=== PATIENT | female | born 1980 | race Caucasian/White ===

== ENCOUNTER 2016-12-14 23:25 | Day surgery (SDC) | payer MEDICAID, OTHER ==
[~2016-12-14] VITALS: Ht 167.6 cm; Wt 53.5 kg
[~2016-12-14 23:25] MED LIST: PREN1TAB39
--- OUTSIDE RECORDS SUMMARY | 2016-12-14 23:35 | XMS REPORT | Continuity of Care Document ---
Author Author [facility] C[facility] of [facility]tr of [facility] Address Unknown Phone Unavailable Allergies Medications Problems Date Dx Coded Attending Type Code Diagnosis Diagnosed By 11/05/2007 VAMSI WALSH APRN S 311 MO DEPRESSIVE DISORDER NOS 11/05/2007 311 MO DEPRESSIVE DISORDER NOS 11/05/2007 MARY DO JOSE LUIS K 311 MO DEPRESSIVE DISORDER NOS 11/05/2007 HARJINDERDONOVAN GERONIMO MARIE A 311 MO DEPRESSIVE DISORDER NOS 11/05/2007 MARY DO JOSE LUIS K 311 MO DEPRESSIVE DISORDER NOS 11/05/2007 MARY DO, JOSE LUIS K 311 MO DEPRESSIVE DISORDER NOS 11/05/2007 MARY DO, JOSE LUIS K 311 MO DEPRESSIVE DISORDER NOS 11/05/2007 MARY DO, JOSE LUIS K 311 MO DEPRESSIVE DISORDER NOS 01/13/2012 ÓSCAR WALSH APRNNDA S 530.81 GERD 01/13/2012 ÓSCAR WALSH APRNNDA S 625.0 DYSPAREUNIA 01/13/2012 VAMSI WALSH APRN S 724.2 LUMBAGO/ LOW BACK PAIN 01/13/2012 530.81 GERD 01/13/2012 625.0 DYSPAREUNIA 01/13/2012 724.2 LUMBAGO/ LOW BACK PAIN 01/13/2012 MARY DO JOSE LUIS K 530.81 GERD 01/13/2012 MARY DO JOSE LUIS K 625.0 DYSPAREUNIA 01/13/2012 MARY DO, JOSE LUIS K 724.2 LUMBAGO/ LOW BACK PAIN 01/13/2012 HARJINDER LOG CUT OFF SAWYER, MARIE A 530.81 GERD 01/13/2012 HARJINDER APRN, MARIE A 625.0 DYSPAREUNIA 01/13/2012 HARJINDERFermin GERONIMO MARIE A 724.2 LUMBAGO/ LOW BACK PAIN 01/13/2012 MARY DO JOSE LUIS K 530.81 GERD 01/13/2012 MARY DO JOSE LUIS K 625.0 DYSPAREUNIA 01/13/2012 MARY DO JOSE LUIS K 724.2 LUMBAGO/ LOW BACK PAIN 01/13/2012 MARY DO, JOSE LUIS K 530.81 GERD 01/13/2012 MARY DO, JOSE LUIS K 625.0 DYSPAREUNIA 01/13/2012 MARY DO, JOSE LUIS K 724.2 LUMBAGO/ LOW BACK PAIN 01/13/2012 MARY DO, JOSE LUIS K 530.81 GERD 01/13/2012 MARY DO, JOSE LUIS K 625.0 DYSPAREUNIA 01/13/2012 MARY DO, JOSE LUIS K 724.2 LUMBAGO/ LOW BACK PAIN 01/13/2012 MARY DO, JOSE LUIS K 530.81 GERD 01/13/2012 MARY DO, JOSE LUIS K 625.0 DYSPAREUNIA 01/13/2012 MARY DO, JOSE LUIS K 724.2 LUMBAGO/ LOW BACK PAIN 02/04/2012 VAMSI WALSH APRN S V76.10 BREAST CANCER SCREENING 02/04/2012 VAMSI WALSH APRN S V76.2 CERVICAL CANCER SCREENING (PAP SMEAR) 02/04/2012 V76.10 BREAST CANCER SCREENING 02/04/2012 V76.2 CERVICAL CANCER SCREENING (PAP SMEAR) 02/04/2012 MARY DO JOSE LUIS K V76.10 BREAST CANCER SCREENING 02/04/2012 MARY DO JOSE LUIS K V76.2 CERVICAL CANCER SCREENING (PAP SMEAR) 02/04/2012 HARJINDER GERONIMO MARIE A V76.10 BREAST CANCER SCREENING 02/04/2012 HARJINDER GERONIMO MARIE A V76.2 CERVICAL CANCER SCREENING (PAP SMEAR) 02/04/2012 USMAN ANGELA JOSE LUIS K V76.10 BREAST CANCER SCREENING 02/04/2012 MARY DO JOSE LUIS K V76.2 CERVICAL CANCER SCREENING (PAP SMEAR) 02/04/2012 MARY DO, JOSE LUIS K V76.10 BREAST CANCER SCREENING 02/04/2012 MARY DO, JOSE LUIS K V76.2 CERVICAL CANCER SCREENING (PAP SMEAR) 02/04/2012 MARY DO JOSE LUIS K V76.10 BREAST CANCER SCREENING 02/04/2012 MARY DO, JOSE LUIS K V76.2 CERVICAL CANCER SCREENING (PAP SMEAR) 02/04/2012 MARY DO JOSE LUIS K V76.10 BREAST CANCER SCREENING 02/04/2012 MARY DO JOSE LUIS K V76.2 CERVICAL CANCER SCREENING (PAP SMEAR) 07/21/2013 MARY DO, JOSE LUIS K 458.9 HYPOTENSION UNSPECIFIED 07/21/2013 MARY DO, JOSE LUIS K 780.4 DIZZINESS AND GIDDINESS 07/21/2013 MARY DO, JOSE LUIS K 784.0 HEADACHE 07/21/2013 MARY DO, JOSE LUIS K 787.02 NAUSEA ALONE 07/21/2013 MARY DO, OJSE LUIS K 458.9 HYPOTENSION UNSPECIFIED 07/21/2013 MARY DO, JOSE LUIS K 780.4 DIZZINESS AND GIDDINESS 07/21/2013 MARY DO, JOSE LUIS K 784.0 HEADACHE 07/21/2013 MARY DO, JOSE LUIS K 787.02 NAUSEA ALONE 07/21/2013 MARY DO, JOSE LUIS K 458.9 HYPOTENSION UNSPECIFIED 07/21/2013 MARY DO, JOSE LUIS K 780.4 DIZZINESS AND GIDDINESS 07/21/2013 MARY DO, JOSE LUIS K 784.0 HEADACHE 07/21/2013 MARY DO, JOSE LUIS K 787.02 NAUSEA ALONE 07/21/2013 MARY DO, JOSE LUIS K 458.9 HYPOTENSION UNSPECIFIED 07/21/2013 MARY DO, JOSE LUIS K 780.4 DIZZINESS AND GIDDINESS 07/21/2013 MARY DO, JOSE LUIS K 784.0 HEADACHE 07/21/2013 MARY DO, JOSE LUIS K 787.02 NAUSEA ALONE 06/19/2014 MARY DO, JOSE LUIS K 784.0 HEADACHE Procedures Code Description [place] [address] GC/CHLAM PROBE (STATE) 02/04/2012 Q0091 PAP SMEAR OBTAIN SMEAR 02/04/2012 04064 TRICHOMONAS (IN-HOUSE) 02/04/2012 17915 CULTURE UROGENITAL 02/08/2012 16350 PAP SMEAR 2011 84954 XRAY LUMBAR SPINE 2 OR 3 VIEWS 06/01/2012 PHYSI PHYSICAL THERAPY, VIA MATT 06/01/2012 67044 ROUTINE VENIPUNCTURE 07/21/2013 32208 HEMOGLOBIN (IN-HOUSE) 07/21/2013 96662 A1C (IN-HOUSE) 4950 GFR CALC (RESULT ONLY) 07/21/2013 32963 CMP 07/21/2013 Results Encounters ACCT No. Visit Date/Time Discharge Status Pt. Type Provider Facility Loc./Unit Complaint [id number] 06/19/2014 12:59:00 06/19/2014 23: 59:59 CLS Outpatient JOSE LUIS MARY DO [id number] 03/14/2014 14:05:00 03/14/2014 23: 59:59 CLS Outpatient JOSE LUIS MARY DO Clive [id number] 08/22/2013 12:24:00 08/22/2013 23: 59:59 CLS Outpatient JOSE LUIS MARY DO Clive [id number] 07/21/2013 13:23:00 07/21/2013 23: 59:59 CLS Outpatient SUMAN ANGELA JOSE LUIS K [id number] 02/24/2013 09:49:00 02/24/2013 23: 59:59 CLS Outpatient MARIE GRANDE APRN [id number] 06/01/2012 13:33:00 06/01/2012 23: 59:59 CLS Outpatient SULEMAN MARY DOTonio Duffy [id number] 04/07/2012 15:03:00 04/07/2012 23: 59:59 CLS Outpatient [id number] 02/04/2012 14:19:00 02/04/2012 23: 59:59 CLS Outpatient VAMSI WALSH APRN
--- OUTSIDE RECORDS SUMMARY | 2016-12-14 23:35 | XMS REPORT ---
Author Author CECY VILLASENOR Organization [facility] Address [address] [place] [address] Care Team Providers Care Fire Protection Specialist Name Role Phone KRYSTINRufina CECY Unavailable PROBLEMS Type Condition ICD9-CM Code XXX67-PJ Code Onset Dates Condition Status SNOMED Code Problem Periodontal disease, unspecified K05.6 Active 679244020 Problem Hematemesis K92.0 Active 4424178 Problem Menorrhagia with regular cycle N92.0 Active 871988107 Problem Dyspepsia R10.13 Active 633712383 Problem Low back pain M54.5 Active 710818905 Problem Nausea R11.0 Active 514233071 Problem Heartburn R12 Active 41555375 Problem History of hematuria Z87.448 Active 315285228 ALLERGIES Substance Reaction Event Type Date Status N.K.D.A. Unknown Non Drug Allergy Mar, Unknown SOCIAL HISTORY No smoking Hx information available PLAN OF CARE Activity Details Follow Up 3-4 weeks with a new pcp Reason:establish care VITAL SIGNS Height 67 in 2016-04-22 Weight 112.8 lbs 2016-04-22 Temperature 98.8 degrees Fahrenheit 2016-04-22 Heart Rate 56 bpm 2016-04-22 Respiratory Rate 16 2016-04-22 BMI 17.67 kg/m2 2016-04-22 Blood pressure systolic 100 mmHg 2016-04-22 Blood pressure diastolic 70 mmHg 2016-04-22 MEDICATIONS Medication Instructions Dosage Frequency Start Date End Date Duration Status Nexium 40 mg Orally Once a day 1 capsule 24h Mar, 30 day(s) Active Cipro 250 MG Orally every 12 hrs 1 tablet 12h Mar, Apr, 07 days Active RESULTS Name Result Date Reference Range H PYLORI (IN HOUSE) 2016-04-22 H. PYLORI negative Control + Lot # [id number] Exp date 01/2017 UA LONG DIP (IN HOUSE) 2016-04-22 Lot # [id number] Exp date 02/06 Clarity clear Color ion Odor foul GLU negative JANNET 1+ KET negative SG 1.020 BLO 2+ pH 7.0 Protein negative URO >8.0 NIT negative DAI 3+ Lot # Exp date CULTURE, URINE 2016-04-23 Urine Culture, Routine Final report Result 1 Antimicrobial Susceptibility PROCEDURES Procedure Date Ordered Related Diagnosis Body Site IMMUNOASSAY,INFECTIOUS AGENT Apr 22, 2016 URINALYSIS, AUTO, W/O SCOPE Apr 22, 2016 LAB NOT BILLED BY [facility] Apr 22, 2016 Office Visit, Est Pt., Level 4 Apr 22, 2016 IMMUNIZATIONS No Known Immunizations
--- OUTSIDE RECORDS SUMMARY | 2016-12-14 23:35 | XMS REPORT ---
Author Author DONNA CHAMBERLAIN Organization [employer] Address Unknown Phone Unavailable Care Team Providers Care Power Tool Repair Technician Name Role Phone DONNA CHAMBERLAIN CP Unavailable Allergies, Adverse Reactions, Alerts Substance Reaction Event Type N.K.D.A. Info Not Available Non Drug Allergy Problems Problem Type Condition Code Onset Dates Condition Status Assessment Other chronic pain G89.29 Active Problem Lumbago 724.2 Active Problem Esophageal reflux 530.81 Active Assessment Dorsalgia, unspecified M54.9 Active Problem Headache 784.0 Active Problem Dizziness and giddiness 780.4 Active Problem Nausea alone 787.02 Active Problem Screening for malignant neoplasm of the cervix V76.2 Active Problem Dyspareunia 625.0 Active Problem Unspecified hypotension 458.9 Active Problem Unspecified breast screening V76.10 Active Medications Medication Code System Code Instructions Start Date End Date Status Dosage [facility] [id number] 10 mg Orally Once a day Nov 13, 2015 3 tabs x 3 days, then 2 tabs x 3 days, then 1 tab x 3 days Procedures Procedure Coding System Code Date Office Visit, Est Pt., Level 3 CPT-4 80903 Nov 13, 2015 Vital Signs Date/Time: Nov 13, 2015 Cardiac Monitoring Heart Rate 68 bpm Weight 113.6 lbs Height 67 in BMI 17.79 Index Blood Pressure Diastolic 66 mmHg Blood Pressure Systolic 102 mmHg Results No Known Results Summary Purpose [employer] Submission
[2016-12-14] MEDS ORDERED: NS IV 1000 ML 1,000 ML IV ONE (23:55)
[2016-12-14] MEDS ORDERED: fentaNYL INJECTION 100 MCG/2 ML AMP IVP STA (23:55)
--- NOTE | 2016-12-15 00:12 | ED Abdominal Pain ---
General Chief Complaint: Abdominal/GI Problems Stated Complaint: AB SIDE PAIN Nursing Triage Note: RIGHT SIDED ABDOMINAL PAIN/NAUSEA X1HR Sepsis Screen: No Definite Risk Source of Information: Patient Exam Limitations: No Limitations History of Present Illness Time Seen By Provider: 00:02 Initial Comments Here with report of right flank pain and right upper quadrant abdominal pain that started about an hour ago and woke her up from sleep. Denies previous pain like this before. Does report nausea but no vomiting. Denies diarrhea. Denies fever or chills. Timing/Duration: 1 Hour Severity/Quality: Moderate, Severe Location: RUQ Radiation: RLQ Activities at Onset: Sleeping Modifying Factors: Worsens With Movement Associated Symptoms: No Back Pain, No Chest Pain, No Fever/Chills, Nausea/ Vomiting, No Shortness of Air, No Swelling/Mass in Abdomen, No Weakness Allergies and Home Medications Allergies Coded Allergies: diphenhydramine (Verified Adverse Reaction, Mild, DROWSINESS, 05/21/09) Uncoded Allergies: BENADRYL (Adverse Reaction, Mild, DROWSINESS, 07/30/05) Home Medications No Active Prescriptions or Reported Meds Review of Systems Constitutional: see HPI, No chills, No fever EENTM: No Symptoms Reported Respiratory: No Symptoms Reported Cardiovascular: No Symptoms Reported Gastrointestinal: See HPI, Abdominal Pain, Denies Diarrhea, Nausea, Denies Vomiting Genitourinary: No Symptoms Reported Musculoskeletal: no symptoms reported Skin: no symptoms reported Psychiatric/Neurological: No Symptoms Reported All Other Systems Reviewed Negative Unless Noted: Yes Past Tqxaghx-Dqbwqd-Bttkev Hx Patient Social History Alcohol Use: Denies Use Recreational Drug Use: No Smoking Status: Never a Smoker 2nd Hand Smoke Exposure: No Recent Foreign Travel: No Contact w/Someone Who Travel: No Recent Infectious Disease Expo: No Recent Hopitalizations: No Immunizations Up To Date Tetanus Booster (TDap): Unknown Surgeries History of Surgeries: Yes () Surgeries: Tubal Ligation Respiratory History of Respiratory Disorde: No Cardiovascular History of Cardiac Disorders: No Neurological History of Neurological Disord: No Reproductive System : No Hx Reproductive Disorders: No [facility] History: Tubal Ligation Genitourinary History of Genitourinary Disor: No Gastrointestinal History of Gastrointestinal Di: Yes Gastrointestinal Disorders: Gastroesophageal Reflux Musculoskeletal History of Musculoskeletal Dis: No Endocrine History of Endocrine Disorders: No HEENT History of HEENT Disorders: No Cancer History of Cancer: No Psychosocial History of Psychiatric Problem: No Integumentary History of Skin or Integumenta: No Blood Transfusions History of Blood Disorders: No Reviewed Nursing Assessment Reviewed/Agree w Nursing PMH: Yes Physical Exam Vital Signs VS - Last 72 Hours, by Label 12/14/16 12/15/16 12/15/16 23:54 00:07 01:53 Temp 97.3 97.3 97.3 Pulse 71 Resp 20 B/P (MAP) 102/61 Pulse Ox 100 O2 Delivery Room Air Capillary Refill : Less Than 3 Seconds General Appearance: WD/WN, no apparent distress HEENT: PERRL/EOMI, pharynx normal Neck: full range of motion, supple Respiratory: lungs clear, normal breath sounds Cardiovascular: regular rate, rhythm, no murmur Peripheral Pulses: 2+ Dorsalis Pedis (R), 2+ Left Dors-Pedis (L), 2+ Radial Pulses (R), 2+ Radial Pulses (L) Gastrointestinal: soft, No guarding, No rebound, tenderness (right upper quadrant) Extremities: non-tender, normal inspection Back: normal inspection, no CVA tenderness, no vertebral tenderness Neurologic/Psychiatric: alert, oriented x 3 Skin: normal color, warm/dry Progress/Results/Core Measures Results/Orders Lab Results Laboratory Tests Test 12/15/16 00:00 Range/Units White Blood Count 9.3 4.3-11.0 10^3/uL Red Blood Count 3.83 L 4.35-5.85 10^6/uL Hemoglobin 12.0 11.5-16.0 G/DL Hematocrit 36 35-52 % Mean Corpuscular Volume 94 80-99 FL Mean Corpuscular Hemoglobin 31 25-34 PG Mean Corpuscular Hemoglobin Concent 34 32-36 G/DL Red Cell Distribution Width 12.2 10.0-14.5 % Platelet Count 283 130-400 10^3/uL Mean Platelet Volume 9.0 7.4-10.4 FL Neutrophils (%) (Auto) 56 42-75 % Lymphocytes (%) (Auto) 34 12-44 % Monocytes (%) (Auto) 8 0-12 % Eosinophils (%) (Auto) 1 0-10 % Basophils (%) (Auto) 0 0-10 % Neutrophils # (Auto) 5.2 1.8-7.8 X 10^3 Lymphocytes # (Auto) 3.1 1.0-4.0 X 10^3 Monocytes # (Auto) 0.8 0.0-1.0 X 10^3 Eosinophils # (Auto) 0.1 0.0-0.3 10^3/uL Basophils # (Auto) 0.0 0.0-0.1 10^3/uL Urine Color YELLOW Urine Clarity SLIGHTLY CLOUDY Urine pH 6 5-9 Urine Specific [place] 1.020 1.016-1.022 Urine Protein 1+ H NEGATIVE Urine Glucose (UA) NEGATIVE NEGATIVE Urine Ketones NEGATIVE NEGATIVE Urine Nitrite NEGATIVE NEGATIVE Urine Bilirubin NEGATIVE NEGATIVE Urine Urobilinogen NORMAL NORMAL MG/DL Urine Leukocyte Esterase 3+ H NEGATIVE Urine RBC (Auto) 4+ H NEGATIVE Urine RBC 5-10 H /HPF Urine WBC 10-25 H /HPF Urine Squamous Epithelial Cells 10-25 H /HPF Urine Crystals NONE /LPF Urine Bacteria LARGE H /HPF Urine Casts NONE /LPF Urine Mucus LARGE H /LPF Urine Culture Indicated YES Sodium Level 138 135-145 MMOL/L Potassium Level 3.8 3.6-5.0 MMOL/L Chloride Level 105 98-107 MMOL/L Carbon Dioxide Level 24 21-32 MMOL/L Anion Gap 9 5-14 MMOL/L Blood Urea Nitrogen 15 7-18 MG/DL Creatinine 0.67 0.60-1.30 MG/DL Estimat Glomerular Filtration Rate > 60 BUN/Creatinine Ratio 22 Glucose Level 118 H 70-105 MG/DL Calcium Level 8.7 8.5-10.1 MG/DL Total Bilirubin 0.4 0.1-1.0 MG/DL Aspartate Amino Transf (AST/SGOT) 13 5-34 U/L Alanine Aminotransferase (ALT/SGPT) 10 0-55 U/L Alkaline Phosphatase 38 L 40-136 U/L Total Protein 7.1 6.4-8.2 GM/DL Albumin 4.2 3.2-4.5 GM/DL Amylase Level 71 25-125 U/L Lipase 15 8-78 U/L My Orders Orders - KENN BROCK MD Cbc With Automated Diff (12/14/16 23:55) Comprehensive Metabolic Panel (12/14/16 23:55) Ua Culture If Indicated (12/14/16 23:55) Saline Lock/Iv-Start (12/14/16 23:55) Ns Iv 1000 Ml (Sodium Chloride 0.9%) (12/14/16 23:55) Fentanyl Injection (Sublimaze Injection (12/14/16 23:55) Urine Bedside (12/14/16 23:55) Urine Culture (12/15/16 00:00) Ct Abdomen/Pelvis W (12/15/16 01:26) Fentanyl Injection (Sublimaze Injection (12/15/16 01:27) Iohexol Injection (Omnipaque 350 Mg/Ml 1 (12/15/16 01:30) Ns (Ivpb) (Sodium Chloride 0.9% Ivpb Bag (12/15/16 01:30) Amylase (12/15/16 03:06) Lipase (12/15/16 03:06) Fentanyl Injection (Sublimaze Injection (12/15/16 04:23) Medications Given in ED Current Medications Medications Dose Ordered Sig/Ludy Route Start Time Stop Time Status Last Admin Dose Admin Iohexol 100 ml ONCE ONCE IV 12/15/16 01:30 12/15/16 02:51 DC 12/15/16 01:40 100 ML Sodium Chloride 100 ml ONCE ONCE IV 12/15/16 01:30 12/15/16 02:51 DC 12/15/16 01:40 80 ML Sodium Chloride 1,000 ml @ 0 mls/hr Q0M ONCE IV 12/14/16 23:55 12/14/16 23:57 DC 12/15/16 00:07 0 MLS/HR Vital Signs/I&O Vital Sign - Last 12Hours 12/14/16 12/15/16 12/15/16 23:54 00:07 01:53 Temp 97.3 97.3 97.3 Pulse 71 Resp 20 B/P (MAP) 102/61 Pulse Ox 100 O2 Delivery Room Air Blood Pressure Mean: 75 Progress Note : Progress Note Seen and evaluated. IV, labs, UA, normal saline 1 L bolus and fentanyl [address] abdomen and pelvis ordered. Repeat fentanyl 50 g IV ordered for persistent pain. 0545: CT report still unavailable. Discussed the case with Dr. Canales. Due to repeat requirement for pain medicines and multiple stones within the gallbladder, admission and consideration for surgery is indicated. Dr. Canales agrees and will likely take her for cholecystectomy today. Agrees to admission, observation status. Discussed with patient and family who agree. Departure Communication (Admissions) Time/Spoke to Admitting Phy: 05:45 Impression Impression: Primary Impression: Cholelithiasis and cholecystitis without obstruction Qualified Codes: K80.00 - Calculus of gallbladder with acute cholecystitis without obstruction Disposition: ADMITTED INPATIENT Condition: Stable Admissions Decision to Admit Reason: Admit from ER (General) Decision to Admit/Date: Dec 15, 2016 Time/Decision to Admit Time: 05:45 Departure-Patient Inst. Referrals: [facility] (PCP/Family) Primary Care Physician Scripts No Active Prescriptions or Reported Meds KENN BROCK MD Dec 15, 2016 00:12
[2016-12-15 00:17] LABS: BILIRUBIN,URINE NEGATIVE (NEGATIVE); KETONES,URINE NEGATIVE (NEGATIVE); LEUKOCYTE ESTERASE ,URINE 3+ (NEGATIVE); NITRITE,URINE NEGATIVE (NEGATIVE); PH,URINE 6 (5-9); PROTEIN,URINE 1+ (NEGATIVE); UROBILINOGEN,URINE NORMAL (NORMAL)
[2016-12-15 00:18] LABS: BASOPHILS % (AUTO) 0 % (0-10); EOSINOPHILS # (AUTO) 0.1 10^3/uL (0.0-0.3); EOSINOPHILS % (AUTO) 1 % (0-10); LYMPHOCYTES # (AUTO) 3.1 X 10^3 (1.0-4.0); LYMPHOCYTES % (AUTO) 34 % (12-44); MEAN CORPUSCULAR HEMOGLOBIN 31 PG (25-34); MEAN CORPUSCULAR HGB CONC 34 G/DL (32-36); MEAN CORPUSCULAR VOLUME 94 FL (80-99); MONOCYTES # (AUTO) 0.8 X 10^3 (0.0-1.0); MONOCYTES % (AUTO) 8 % (0-12); NEUTROPHILS # (AUTO) 5.2 X 10^3 (1.8-7.8); NEUTROPHILS % (AUTO) 56 % (42-75); PLATELET COUNT 283 10^3/uL (130-400); RED BLOOD COUNT 3.83 10^6/uL (4.35-5.85); RED CELL DISTRIBUTION WIDTH 12.2 % (10.0-14.5); WHITE BLOOD COUNT 9.3 10^3/uL (4.3-11.0)
[2016-12-15 00:36] LABS: ALANINE AMINOTRANSFERASE 10 U/L (0-55); ALBUMIN 4.2 GM/DL (3.2-4.5); ANION GAP 9 MMOL/L (5-14); ASPARTATE AMINO TRANSFERASE 13 U/L (5-34); BILIRUBIN,TOTAL 0.4 MG/DL (0.1-1.0); BLOOD UREA NITROGEN 15 MG/DL (7-18); BUN/CREATININE RATIO 22; CALCIUM 8.7 MG/DL (8.5-10.1); CARBON DIOXIDE 24 MMOL/L (21-32); CHLORIDE 105 MMOL/L (98-107); CREATININE SERUM 0.67 MG/DL (0.60-1.30); GFR ESTIMATED > 60; GLUCOSE 118 MG/DL (70-105); POTASSIUM 3.8 MMOL/L (3.6-5.0); SODIUM 138 MMOL/L (135-145); TOTAL PROTEIN 7.1 GM/DL (6.4-8.2)
[2016-12-15] MEDS ORDERED: fentaNYL INJECTION 100 MCG/2 ML AMP IVP STA ×2 (01:27→04:23)
[2016-12-15] MEDS ORDERED: IOHEXOL 350 MG/ML 100 ML (OMNIPAQUE 350) VIAL IV ONE (01:30)
[2016-12-15] MEDS ORDERED: NS 100 ML (IVPB) BAG IV ONE (01:30)
[2016-12-15 02:00] VITALS: BP 112/76
[2016-12-15 03:25] LABS: AMYLASE 71 U/L (25-125); LIPASE 15 U/L (8-78)
[2016-12-15 04:00] VITALS: BP 119/65
--- OUTSIDE RECORDS SUMMARY | 2016-12-15 05:56 | XMS REPORT | Continuity of Care Document ---
Author Author [facility] of [facility] Address Unknown Phone Unavailable Allergies Medications Problems [...] 724.2 LUMBAGO/ LOW BACK PAIN 01/13/2012 HARJINDER SPECIAL EDUCATION SUPERVISOR, MARIE A 530.81 GERD 01/13/2012 HARJINDER APRN, [...] Procedures Code Description [place] [address] GC/CHLAM PROBE (STATE) 02/04/2012 Q0091 PAP SMEAR OBTAIN SMEAR 02/04/2012 88681 TRICHOMONAS (IN-HOUSE) 02/04/2012 20435 CULTURE UROGENITAL 02/08/2012 27702 PAP SMEAR 2011 06929 XRAY LUMBAR SPINE 2 OR 3 VIEWS 06/01/2012 PHYSI PHYSICAL THERAPY, VIA MATT 06/01/2012 42349 ROUTINE VENIPUNCTURE 07/21/2013 53390 HEMOGLOBIN (IN-HOUSE) 07/21/2013 96303 A1C (IN-HOUSE) 4950 GFR CALC (RESULT ONLY) 07/21/2013 41194 CMP 07/21/2013 Results Encounters ACCT No. Visit Date/Time Discharge Status Pt. Type Provider Facility Loc./Unit Complaint [id number] 06/19/2014 12:59:00 06/19/2014 23: 59:59 CLS Outpatient JOSE LUIS MARY DO [id number] 03/14/2014 14:05:00 03/14/2014 23: 59:59 CLS Outpatient JOSE LUIS MARY DO Clive [id number] 08/22/2013 12:24:00 08/22/2013 23: 59:59 CLS Outpatient JOSE LUIS MARY DO Clive [id number] 07/21/2013 13:23:00 07/21/2013 23: 59:59 CLS Outpatient USMAN ANGELA JOSE LUIS K [id number] 02/24/2013 09:49:00 02/24/2013 23: 59:59 CLS Outpatient MARIE GRANDE APRN [id number] 06/01/2012 13:33:00 06/01/2012 23: 59:59 CLS Outpatient SULEMAN MARY DOTonio Duffy [id number] 04/07/2012 15:03:00 04/07/2012 23: 59:59 CLS Outpatient [id number] 02/04/2012 14:19:00 02/04/2012 23: 59:59 CLS Outpatient VAMSI WALSH APRN
[2016-12-15] MEDS: NS IV 1000 ML 1,000 ML IV SCH ×2 (06:26→14:51)
[2016-12-15] MEDS ORDERED: ONDANSETRON 4 MG/2 ML (SDV) Z0FRAN IV PRN (06:30)
--- NOTE | 2016-12-15 07:13 | Diagnostic Imaging Report ---
PROCEDURE: CT abdomen and pelvis with contrast. TECHNIQUE: Multiple contiguous axial images were obtained through the abdomen and pelvis after administration of intravenous contrast. INDICATION: Right lower quadrant abdominal pain with nausea. There is mild dependent atelectasis in the left lung base. No focal hepatic or splenic abnormalities identified. Pancreas and adrenal glands were also unremarkable. There are multiple stones within the lumen of the gallbladder however no gallbladder wall thickening or pericholecystic fluid is identified. There is no evidence of biliary ductal dilatation. Nonobstructing calculus in the central right kidney measures approximately 0.5 cm in size. Kidneys are otherwise unremarkable. There is no free fluid in the abdomen. Within the pelvis, there is distention of distal small bowel with fluid. The cecum is located to the left of midline and directed cephalad. Moderate amount of stool is seen within the cecum and distal colon. No localized inflammation is identified. Partially opacified urinary bladder is unremarkable. Note is made of surgical clips bilaterally in the adnexal regions. In addition, there is an approximately 1.8 cm cystic structure in the right adnexal region. IMPRESSION: Unusual positioning of the cecum could be related to volvulus or internal hernia. Consideration should be given to contrast enema for further assessment. Dilatation of distal small bowel loops may be due to partial bowel obstruction as well. 1.7 cm cystic structure in the right adnexal region is likely ovarian in nature. If indicated, short-term ultrasound followup in the pelvis may be of value. Dictated by: Dictated on workstation # [id number]
[2016-12-15 08:49] VITALS: BP 103/69
--- NOTE | 2016-12-15 09:50 | Diagnostic Imaging Report ---
PROCEDURE: US Gallbladder. TECHNIQUE: Multiple real-time grayscale images were obtained over the right upper quadrant in various projections. INDICATION: Right upper quadrant pain. FINDINGS: The pancreas appears unremarkable. The liver is fairly homogeneous with no focal lesion seen. Hepatopedal flow in the portal vein seen. The CBD is obscured. There are multiple stones seen in the gallbladder. No significant wall thickening is seen. No pericholecystic fluid. Color Doppler demonstrates hepatopedal flow in the portal vein The right kidney demonstrates suggestion of a nonobstructive stone measuring 1 CM in the middle of the right kidney. The right kidney is 12 CM in length. No free fluid or fluid collection in the upper right abdomen seen. Sonographic Cooper sign is reportedly negative. IMPRESSION: 1. Multiple gallstones. 2. A 1 cm nonobstructive stone in the mid right kidney. Dictated by: Dictated on workstation # [id number]
[2016-12-15] MEDS: fentaNYL INJECTION 100 MCG/2 ML AMP IV PRN ×2 (10:06→15:53)
[2016-12-15] MEDS ORDERED: IBUP-2055 PO (10:30)
[2016-12-15] MEDS ORDERED: RANI-514 PO (10:30)
[2016-12-15 12:00] VITALS: BP 114/75
[2016-12-15 15:45] VITALS: BP 99/65
[2016-12-15] MEDS ORDERED: CATHETER FLUSH 10 ML SYR IV PRN (16:00)
[2016-12-15] MEDS: CIPROFLOXACIN IV 400MG/200ML 200 ML IV SCH (16:28)
--- NOTE | 2016-12-15 16:33 | Progress Note-Pre Operative ---
Pre-Operative Progress Note H&P Reviewed The H&P was reviewed, patient examined and no changes noted. Date Seen by Provider: Dec 15, 2016 Time Seen by Provider: 16:32 Date H&P Reviewed: Dec 15, 2016 Time H&P Reviewed: 16:32 Pre-Operative Diagnosis: chronic calculous cholecystitis KYRA RUSSELL MD Dec 15, 2016 4:33 pm
--- NOTE | 2016-12-15 17:26 | HISTORY AND PHYSICAL ---
DATE OF SERVICE: ATTENDING SUPERINTENDENT JOB: [facility]. HISTORY OF PRESENT ILLNESS: The patient is a 36-year-old female who presented to [facility] Emergency Department early this morning with pain in the right upper abdominal quadrant as well as nausea. She reports that this had occurred the day of and worsened in intensity. She also had reported some nausea; however, no vomiting. A CT scan was performed which did show multiple gallstones. Another incidental finding was a possibility of a target sign in the intussusception; however, she has no signs of any obstruction. Since being admitted, she states that her pain has been under control. She states that she is also hungry. She does not report any fever or chills. PAST MEDICAL HISTORY: Gastroesophageal reflux disease. PAST SURGICAL HISTORY: section, tubal ligation. ALLERGIES: Benadryl. MEDICATIONS: None. SOCIAL HISTORY: Negative smoke, negative alcohol. FAMILY HISTORY: Noncontributory. VITAL SIGNS: Temperature 98.6, blood pressure 114/75, pulse 69, respirations 20, pulse ox 100% on room air. REVIEW OF SYSTEMS: Well-nourished female currently in no acute distress. She is not experiencing any shortness of breath or difficulty breathing. No chest pain, palpitations, diaphoresis. No nausea, vomiting. No diarrhea, constipation, no red blood per rectum, no dark tarry stools. No fever or chills. No recent inadvertent weight loss. All other review of systems negative. PHYSICAL EXAMINATION: CHEST: Clear with good breath sounds bilaterally. HEART: Regular, no murmurs. EXTREMITIES: No lower extremity edema, negative Homans sign. HEENT: No scleral icterus. NECK: No cervical lymphadenopathy. ABDOMEN: Soft, nondistended. There is mild discomfort in the right upper abdominal quadrant upon deep palpation, no peritoneal signs. SKIN: Warm, dry. LABORATORY DATA: WBC 9.3, hemoglobin 12.0, hematocrit 36, platelets 283, total bilirubin 0.4, AST 13, ALT 10, alkaline phosphatase 38, amylase 71, lipase 15. Urinalysis shows 3+ leukocyte esterase and a large amount of bacteria. ASSESSMENT AND PLAN: A 36-year-old female with symptomatic chronic calculous cholecystitis. The natural history of gallbladder disease was explained to the patient including more frequent as well as worsening episodes as well as risk of acute cholecystitis or gangrenous cholecystitis. She is in full understanding and elects to proceed with laparoscopic cholecystectomy which we will proceed with on this admission. The incidental finding on the CT scan, most likely indicated a volvulus. However, in her age group the majority of these are spontaneous and resolve on their own over time. She is not showing any obstructive symptoms and no further imaging is required. Job ID: [id number] DocumentID: [id number] Dictated Date: 12/15/2016 16:32:18 Rn Spine Date: 12/15/2016 17:25:38 Dictated By: KYRA RUSSELL MD
[2016-12-15] MEDS: metroNIDAZOLE 500MG/100ML IVPB 100 ML IV SCH (18:56)
[2016-12-15 19:49] VITALS: BP 122/60
[2016-12-16 00:41] VITALS: BP 97/59
[2016-12-16] MEDS: NS IV 1000 ML 1,000 ML IV SCH ×3 (01:20→11:28)
[2016-12-16] MEDS: CIPROFLOXACIN IV 400MG/200ML 200 ML IV SCH (04:14)
[2016-12-16] MEDS: metroNIDAZOLE 500MG/100ML IVPB 100 ML IV SCH ×2 (06:02→16:48)
[2016-12-16 08:34] VITALS: BP 104/68
[2016-12-16] MEDS ORDERED: TRIM/SULFAMETH 160/800 (SEPTRA DS) TAB PO SCH ×2 (08:43→17:00)
[2016-12-16] MEDS ORDERED: proPOfol 200 MG/20 ML (DIPRIVAN) VIAL IV ONE (10:26)
[2016-12-16] MEDS ORDERED: LIDOCAINE PF 2% 5 ML (XYLOCAINE) VIAL ONE (10:26)
[2016-12-16] MEDS ORDERED: ROCURONIUM 50 MG/5 ML (ZEMURON) VIAL IV ONE (10:26)
[2016-12-16] MEDS ORDERED: LACTATED RINGERS 1,000 ML IV ONE ×2 (10:26→13:31)
[2016-12-16] MEDS ORDERED: SUCCINYLCHOLINE INJ 100 MG/5 ML SYR ONE (10:26)
[2016-12-16] MEDS ORDERED: ONDANSETRON 4 MG/2 ML (SDV) Z0FRAN ONE (10:26)
[2016-12-16] MEDS ORDERED: fentaNYL INJECTION 100 MCG/2 ML AMP ONE (10:27)
[2016-12-16] MEDS ORDERED: MIDAZOLAM 2 MG/2 ML (VERSED) VIAL ONE (10:27)
[2016-12-16] MEDS ORDERED: BUP/EPI 0.5% 1:200,000 (MARCAINE) 10ML VIAL IJ ONE (12:00)
[2016-12-16] MEDS: LACTATED RINGERS 1,000 ML IV PRN ×2 (12:00→12:44)
[2016-12-16] MEDS ORDERED: SEVOFLURANE (ULTANE) 15 ML INHAL SOLN ONE ×4 (12:08→13:07)
[2016-12-16] MEDS ORDERED: DEXAMETHASONE 10 MG/ML (DECADRON) 1 ML VIAL ONE (12:14)
[2016-12-16] MEDS ORDERED: ceFAZolin 1,000 MG (ANCEF) VIAL ONE ×2 (12:25→12:26)
--- NOTE | 2016-12-16 13:29 | Progress Note-Post Operative ---
Post-Operative Progess Note Surgeon (s)/Disaster Recovery Specialist (s) Surgeon KYRA RUSSELL MD Disaster Recovery Specialist: fátima steen PLANE TABLEMAN Pre-Operative Diagnosis chronic calculous cholecystitis Post-Operative Diagnosis same Procedure & Operative Findings Date of Procedure 12/16/16 Procedure Performed/Findings laparoscopic cholecystectomy Anesthesia Type GET Estimated Blood Loss Estimated blood loss (mL): minimal Specimens/Packing Specimens Removed gallbladder KYRA RUSSELL MD Dec 16, 2016 1:29 pm
[2016-12-16] MEDS ORDERED: HYDROcodone/APAP 7.5 MG/325 MG (LORTAB, LORCET PLUS) TABLET PO PRN (13:30)
[2016-12-16] MEDS ORDERED: SULF1TAB35 PO (13:36)
[2016-12-16] MEDS ORDERED: HYDR-3816 PO (13:36)
--- NOTE | 2016-12-16 13:39 | Discharge Inst-Surgical ---
D/C Lap Instructions-YVONNE New, Converted, or Re-Newed RX: RX on Chart Follow Up Appt in 2 weeks Activity as tolerated No driving for 24 hours No driving while on pain medications Incentive Spirometry use every 2 hours while awake Regular Diet Symptoms to Report: Fever over 101 degree F, Nausea/Vomiting Infection Signs and Symptoms to report: Increased redness, Foul odor of wound, Increased drainage Bathing instructions: May shower Operative Area Clean/Dry; Keep incision clean/dry If any problems/questions: Contact your physician or go to Emergency Room KYRA RUSSELL MD Dec 16, 2016 1:39 pm
[2016-12-16 14:46] VITALS: BP 108/75
[2016-12-16 18:53] VITALS: BP 108/75
--- NOTE | 2016-12-17 21:10 | OPERATIVE REPORT ---
DATE OF SERVICE: 12/16/2016 PREOPERATIVE DIAGNOSIS: Symptomatic chronic calculous cholecystitis. POSTOPERATIVE DIAGNOSIS: Symptomatic chronic calculous cholecystitis. PROCEDURE: Laparoscopic cholecystectomy. SURGEON: Dr. Russell. FUSING FURNACE LOADER: Manohar Montelongo APRN. ANESTHESIA: General endotracheal. ESTIMATED BLOOD LOSS: Minimal. FINDINGS: Chronic gallbladder wall inflammation as well as omental adhesions throughout the gallbladder, multiple gallstones. No small bowel intussusception was identified. DISPOSITION: The patient tolerated the procedure well. INDICATION: The patient is a 36-year-old female who presented to [facility] Emergency Department with right upper abdominal quadrant pain as well as nausea. She had reported that the symptoms have reoccurred and worsened in severity over a time. She also had reported some nausea; however, no vomiting. A CT scan was performed which did show multiple gallstones. Another incidental finding was identified with a possibility of a target sign to indicate a small bowel intussusception; however, she showed no signs of obstruction. She was admitted, started on IV fluids as well as bowel rest. She did not have any issues of nausea, no vomiting as well as no abdominal distention and was passing flatus and having bowel movements. She did have continued pain in the right upper abdominal quadrant. DESCRIPTION OF PROCEDURE: The patient was brought to the operating room, laid supine on the table. After adequate IV pain and sedating medications and general endotracheal intubation, the abdomen was prepped and draped in a standard surgical fashion. A 0.5% Marcaine with epinephrine was then used to anesthetize the overlying skin in the left upper abdominal quadrant. An 0 silk suture was applied to the medial aspect of the incision for retraction. A Veress needle was inserted with a low opening pressure of 0 mmHg. The abdomen was then insufflated to 15 mmHg pressure. The Veress needle was removed and a 5 mm Xcel trocar was placed followed by a 5 mm 45 degree angle laparoscope visualizing the peritoneal cavity. A four-quadrant abdominal exploration was performed. The small bowel, omentum appeared normal with no signs of intussusception. The liver, stomach appeared normal. There were omental adhesions throughout the gallbladder consistent with a chronic cholecystitis. Under direct visualization, we then proceeded to place a supraumbilical 10 mm port after the skin and peritoneum were anesthetized using 0.5% Marcaine and a transverse skin incision made using a 15 blade. In a similar manner, right upper abdominal quadrant 5 mm port was placed. The patient was then placed in reverse Trendelenburg position as well as plane right side up, left side down. The omental adhesions to the gallbladder were then gently taken down using blunt dissection as well as electrocautery with visualization of good hemostasis. The hepatoduodenal ligament was then opened using the hook instrument as well as blunt dissection. The critical view of safety was identified including the triangle of Calot, the cystic duct and artery going into the gallbladder as well as the liver behind the proximal gallbladder. A timeout was then taken and the cystic duct and artery were then clipped proximally, distally and cut with EndoShears. The gallbladder was then dissected off the liver bed using electrocautery on the hook instrument with visualization good hemostasis as well as no leaking ducts of Luschka. The gallbladder was removed through the 10 mm port site using an EndoCatch bag. The fascia and peritoneum were then closed under direct visualization using Sedrick-Ijeoma device and 0 Vicryl suture. The abdomen was desufflated and remaining ports removed. All skin incisions were closed using 4-0 Monocryl running subcuticular sutures. Wounds were then cleaned and covered with Dermabond. The patient tolerated the procedure well. We will start IV and oral pain medications as well as a clear liquid diet. Once she is tolerating clears and has good pain control with oral pain medication and ambulating well, we will discharge her home. Job ID: [id number] DocumentID: [id number] Dictated Date: 12/16/2016 13:50:47 Unarmed Security Officer Date: 12/17/2016 06:33:49 Dictated By: KYRA RUSSELL MD [facility]
--- OUTSIDE RECORDS SUMMARY | 2016-12-18 09:10 | XMS REPORT ---
Author Author CECY VILLASENOR [facility] Address [address] [place] [address] Care Team Providers Care Coordinator Of Evaluation Name Role Phone CECY VILLASENOR Unavailable PROBLEMS Type Condition ICD9-CM Code [id number] Code Onset Dates Condition Status SNOMED Code Problem Periodontal disease, unspecified K05.6 Active 400195669 Problem Hematemesis K92.0 Active 3099842 Problem Menorrhagia with regular cycle N92.0 Active 367131986 Problem Dyspepsia R10.13 Active 999725316 Problem Low back pain M54.5 Active 207922567 Problem Nausea R11.0 Active 427969055 Problem Heartburn R12 Active 43719926 Problem History of hematuria Z87.448 Active 772676106 ALLERGIES No Information SOCIAL HISTORY Never Assessed PLAN OF CARE VITAL SIGNS MEDICATIONS Medication Instructions Dosage Frequency Start Date End Date Duration Status Bactrim DS 800-160 MG Orally Twice a day 1 tablet 12h Apr, 2 May, 2016 07 days Active RESULTS No Results PROCEDURES No Known procedures IMMUNIZATIONS No Known Immunizations MEDICAL (GENERAL) HISTORY Type Description Date Medical History Unspecified hypotension Medical History Esophageal reflux Medical History Esophageal reflux Surgical History Surgical History Tubal Hospitalization History at
--- OUTSIDE RECORDS SUMMARY | 2016-12-18 09:10 | XMS REPORT ---
Author Author CECY VILLASENOR [facility] Address [address] [place] [address] Care Team Providers Care Sales Representative Wire Rope Name Role Phone CECY VILLASENOR Unavailable PROBLEMS Type Condition ICD9-CM Code HGG00-OP Code Onset Dates Condition Status SNOMED Code Problem Periodontal disease, unspecified K05.6 Active 929732593 Problem Hematemesis K92.0 Active 1711427 Problem Menorrhagia with regular cycle N92.0 Active 519046977 Problem Dyspepsia R10.13 Active 375555681 Problem Low back pain M54.5 Active 477374275 Problem Nausea R11.0 Active 486061351 Problem Heartburn R12 Active 00562640 Problem History of hematuria Z87.448 Active 032569336 ALLERGIES No Known Allergies SOCIAL HISTORY Never Assessed PLAN OF CARE Activity Details Follow Up 2-3 weeks Reason:Annual/WWE VITAL SIGNS Height 67 in 2016-05-13 Weight 117.6 lbs 2016-05-13 Temperature 98.4 degrees Fahrenheit 2016-05-13 Heart Rate 70 bpm 2016-05-13 Respiratory Rate 16 2016-05-13 BMI 18.42 kg/m2 2016-05-13 Blood pressure systolic 92 mmHg 2016-05-13 Blood pressure diastolic 60 mmHg 2016-05-13 MEDICATIONS Medication Instructions Dosage Frequency Start Date End Date Duration Status Nexium 40 mg Orally Once a day 1 capsule 24h Mar, 30 day(s) Active RESULTS Name Result Date Reference Range UA W/ MICROSCOPY 2016-05-13 Specific [place] 1.019 1.005-1.030 pH 8.5 5.0-7.5 Urine-Color Yellow Yellow Appearance Turbid Clear WBC Esterase 3+ Negative Protein 2+ Negative/Trace Glucose Negative Negative Ketones Negative Negative Occult Blood 1+ Negative Bilirubin Negative Negative Urobilinogen,Semi-Qn 0.2 0.2-1.0 Nitrite, Urine Negative Negative Microscopic Examination See below: WBC >30 0 - 5 RBC 3-10 0 - 2 Epithelial Cells (non renal) >10 0 - 10 Epithelial Cells (renal) Casts Cast Type Crystals Present N/A Crystal Type Amorphous Sediment N/A Mucus Threads Present Not Estab. Bacteria Moderate None seen/Few Yeast Trichomonas Comment TSH 2016-05-13 TSH 0.819 0.450-4.500 CBC 2016-05-13 WBC 8.4 3.4-10.8 RBC 3.88 3.77-5.28 Hemoglobin 12.0 11.1-15.9 Hematocrit 36.1 34.0-46.6 MCV 93 79-97 MCH 30.9 26.6-33.0 MCHC 33.2 31.5-35.7 RDW 12.3 12.3-15.4 Platelets 313 150-379 Neutrophils 64 Lymphs 26 Monocytes 8 Eos 1 Basos 1 Neutrophils (Absolute) 5.4 1.4-7.0 Lymphs (Absolute) 2.2 0.7-3.1 Monocytes(Absolute) 0.7 0.1-0.9 Eos (Absolute) 0.1 0.0-0.4 Baso (Absolute) 0.0 0.0-0.2 Immature Granulocytes 0 Immature Grans (Abs) 0.0 0.0-0.1 LIPID PANEL 2016-05-13 Cholesterol, Total 160 100-199 Triglycerides 70 0-149 HDL Cholesterol 74 >39 VLDL Cholesterol Slick 14 5-40 LDL Cholesterol Calc 72 0-99 CMP 2016-05-13 Glucose, Serum 94 65-99 BUN 12 6-20 Creatinine, Serum 0.55 0.57-1.00 eGFR If NonAfricn Am 123 >59 eGFR If Africn Am 142 >59 BUN/Creatinine Ratio 22 8-20 Sodium, Serum 139 134-144 Potassium, Serum 4.1 3.5-5.2 Chloride, Serum 103 96-106 Carbon Dioxide, Total 25 18-29 Calcium, Serum 8.8 8.7-10.2 Protein, Total, Serum 7.1 6.0-8.5 Albumin, Serum 4.5 3.5-5.5 Globulin, Total 2.6 1.5-4.5 A/G Ratio 1.7 1.1-2.5 Bilirubin, Total 0.7 0.0-1.2 Alkaline Phosphatase, S 39 39-117 AST (SGOT) 10 0-40 ALT (SGPT) 7 0-32 Xray : Spine, Lumbar 2-3 views (IN HOUSE) 2016-05-13 PROCEDURES Procedure Date Ordered Result [facility] X-RAY EXAM OF LOWER SPINE May 13, 2016 VENIPUNCT, ROUTINE* May 13, 2016 IMMUNIZATIONS No Known Immunizations MEDICAL (GENERAL) HISTORY Type Description Date Medical History Unspecified hypotension Medical History Esophageal reflux Medical History Esophageal reflux Surgical History Surgical History Tubal Hospitalization History at
--- OUTSIDE RECORDS SUMMARY | 2016-12-18 09:11 | XMS REPORT | Continuity of Care Document ---
Author Author [facility] Address Unknown Phone Unavailable Allergies Medications [...] 724.2 LUMBAGO/ LOW BACK PAIN 01/13/2012 HARJINDER UNDERLINER, MARIE A 530.81 GERD 01/13/2012 HARJINDER APRN, MARIE A 625.0 DYSPAREUNIA 01/13/2012 HARJNIDERFermin GERONIMO MARIE A 724.2 LUMBAGO/ LOW BACK [...] Procedures Code Description [place] [address] GC/CHLAM PROBE (STATE) 02/04/2012 Q0091 PAP SMEAR OBTAIN SMEAR 02/04/2012 77040 TRICHOMONAS (IN-HOUSE) 02/04/2012 95746 CULTURE UROGENITAL 02/08/2012 50615 PAP SMEAR 2011 49528 XRAY LUMBAR SPINE 2 OR 3 VIEWS 06/01/2012 PHYSI PHYSICAL THERAPY, VIA MATT 06/01/2012 56206 ROUTINE VENIPUNCTURE 07/21/2013 12357 HEMOGLOBIN (IN-HOUSE) 07/21/2013 36289 A1C (IN-HOUSE) 4950 GFR CALC (RESULT ONLY) 07/21/2013 83930 CMP 07/21/2013 Results Encounters ACCT No. Visit Date/Time Discharge Status Pt. Type Provider Facility Loc./Unit Complaint [id number] 06/19/2014 12:59:00 06/19/2014 23: 59:59 CLS Outpatient JOSE LUIS MARY DO [id number] 03/14/2014 14:05:00 03/14/2014 23: 59:59 CLS Outpatient JOSE LUIS MARY DO [place] [id number] 08/22/2013 12:24:00 08/22/2013 23: 59:59 CLS Outpatient JOSE LUIS MARY DO [place] [id number] 07/21/2013 13:23:00 07/21/2013 23: 59:59 CLS Outpatient USMAN ANGELA JOSE LUIS K [id number] 02/24/2013 09:49:00 02/24/2013 23: 59:59 CLS Outpatient MARIE GRANDE APRN [id number] 06/01/2012 13:33:00 06/01/2012 23: 59:59 CLS Outpatient SULEMAN MARY DOTonio Duffy [id number] 04/07/2012 15:03:00 04/07/2012 23: 59:59 CLS Outpatient [id number] 02/04/2012 14:19:00 02/04/2012 23: 59:59 CLS Outpatient VAMSI WALSH APRN
== END 2016-12-16 19:00 | disposition home or self-care (01) ==
LOC: EDUNIT# 23:25 → ER 23:28 → 4TH 12-15 05:47 → UNDOADMOB 12-15 05:47 → SDC 12-15 06:10 → 4TH 12-15 06:10 → UNDOADMOB 12-15 06:10 → 4TH 12-15 06:10 → SDC 12-16 19:00 → UNDODISOB 12-16 19:00
PROVIDERS: ATTEND Surgery
DX: K80.12 Calculus of gallbladder with acute and chronic cholecystitis without obstruction (principal)
CPT/HCPCS: 36415; 74177; 76705; 80053; 81000; 82150; 83690; 84703; 85025; 87077; 87081; 87088; 87186; 88304; 96361; 96374; 96376; G0378

== ENCOUNTER 2021-04-19 12:01 | Emergency (ER) | payer SELFPAY ==
[~2021-04-19 12:01] MED LIST changes: +HYDR-34 PO; +IBUP-2473 PO; +RANI-607 PO; +SULF1TAB38 PO
== END 2021-04-19 13:02 | disposition left against medical advice (07) ==
LOC: EDUNIT# 12:01 → ER 12:02
DX: R05.9 Cough, unspecified (principal); R11.2 Nausea with vomiting, unspecified